=== PATIENT | female | born 1990 | race Caucasian/White ===

== ENCOUNTER 2017-03-01 01:00 | Emergency (ER) | payer SELFPAY ==
[~2017-03-01] VITALS: Ht 154.9 cm; Wt 82.0 kg
[2017-03-01 01:34] LABS: HEMATOCRIT 37.6 % (36.0-46.0); MCH 29.2 PG (29.0-34.0); MCHC 33.5 G/DL (30.0-36.0); MCV 87.2 FL (83-99); MEAN PLAT.VOLUME 9.6 uM^3 (9.5-12.4); PLATELET COUNT 289 K/uL (156-360); RBC DIS.WIDTH-CV 13.2 % (11.8-14.6); RBC DIS.WIDTH-SD 41.1 % (39-53); RED BLOOD COUNT 4.31 M/uL (3.80-5.20); WHITE BLOOD COUNT 9.2 K/uL (4.1-10.2)
[2017-03-01 01:47] LABS: CHLORIDE 106 mEq/L (99-109); POTASSIUM 3.8 mEq/L (3.7-5.4); SODIUM 139 mEq/L (136-147)
[2017-03-01 01:49] LABS: GLUCOSE 116 mg/dL (70-99)
[2017-03-01 01:50] LABS: ANION GAP 9 MEQ/L (2-14)
[2017-03-01 01:51] LABS: TOTAL BILIRUBIN 0.5 mg/dL (0.0-1.0)
[2017-03-01 01:52] LABS: ALKALINE PHOSPHATASE 72 IU/L (3-129)
[2017-03-01 01:54] LABS: UREA NITROGEN (BUN) 18 mg/dL (9-23)
[2017-03-01 02:02] LABS: GFR ESTIMATE (CALCULATED) > 59 mL/min/; QUANTITATIVE HCG < 4.0 MIU/ML
[2017-03-01 03:07] LABS: ADD MIUA? YES; BILIRUBIN NEGATIVE; BLOOD SMALL; COLOR YELLOW ((YELLOW)); GLUCOSE (STRIP) NEGATIVE; KETONES NEGATIVE; LEUKOCYTES NEGATIVE; NITRITE NEGATIVE; PROTEIN (STRIP) NEGATIVE; SPECIFIC GRAVITY 1.014 (1.000-1.030); UROBILINOGEN 0.2 MG/DL (0.2-1.0)
[2017-03-01 03:09] LABS: BACTERIA NONE SEEN /HPF; EPITHELIAL CELLS RARE /HPF; MUCUS TRACE /LPF; RED BLOOD CELLS 0-5 /HPF (0-5); UCUL ADDED? NO; WHITE BLOOD CELLS 0-5 /HPF (0-5)
[2017-03-01] MEDS ORDERED: MOTRIN800 MG PO (03:17)
[2017-03-01 03:38] VITALS: BP 117/88
[2017-03-02 12:55] LABS: CHLAMYDIA TRACHOMATIS NEGATIVE; NEISSERIA GONORRHOEAE NEGATIVE
== END 2017-03-01 03:40 | disposition home or self-care (01) ==
LOC: EME 01:00 → EXP 01:00
PROVIDERS: Physician Assistant
DX: N92.1 Excessive and frequent menstruation with irregular cycle (principal); Z98.890 Other specified postprocedural states
CPT/HCPCS: 80053; 81003; 84702; 85027; 87210; 87491; 87591

== ENCOUNTER 2017-03-07 11:42 | Day surgery (SDC) | payer OTHER ==
[~2017-03-07] VITALS: Ht 154.9 cm; Wt 80.5 kg
[~2017-03-07 11:42] MED LIST: MOTRIN800 MG PO; ULTRAM50 MG PO; ZYRTEC10 M3 PO
[2017-03-07 12:15] VITALS: BP 117/55
[2017-03-07 14:50] VITALS: BP 104/67
[2017-03-07 15:25] VITALS: BP 112/78
== END 2017-03-07 15:30 | disposition home or self-care (01) ==
LOC: SDC 11:42
PROC: 0UDB7ZX Extraction of Endometrium, Via Natural or Artificial Opening, Diagnostic (ICD-10-PCS; principal; 2017-03-07)
DX: N92.1 Excessive and frequent menstruation with irregular cycle (principal); N87.9 Dysplasia of cervix uteri, unspecified; N94.6 Dysmenorrhea, unspecified; N97.0 Female infertility associated with anovulation; K21.9 Gastro-esophageal reflux disease without esophagitis; K50.90 Crohn's disease, unspecified, without complications; Q61.5 Medullary cystic kidney; Z72.0 Tobacco use; Z83.3 Family history of diabetes mellitus
CPT/HCPCS: 88305; J0131; J1100; J2250; J2405; J2765; J3010

== ENCOUNTER 2017-06-04 05:12 | Day surgery (SDC) | payer OTHER ==
[~2017-06-04] VITALS: Ht 154.9 cm; Wt 78.1 kg
[~2017-06-04 05:12] MED LIST changes: +LEVOXYL25 MCG PO
[2017-06-04 05:52] VITALS: BP 121/80
[2017-06-04 13:58] VITALS: BP 117/79
[2017-06-04 19:15] VITALS: BP 118/61
[2017-06-05 00:20] VITALS: BP 109/58
[2017-06-05 06:03] LABS: EOSINOPHIL (%) 0.8 % (0-5); EOSINOPHIL COUNT 0.1 K/uL (0-0.3); HEMATOCRIT 29.8 % (36.0-46.0); IMMATURE GRANULOCYTE (%) 0.4 % (0.0-0.7); INSTRUMENT ABS NEUTROPHIL CT 8.6 K/uL; LYMPHOCYTE COUNT 1.7 K/uL (1.0-2.8); MCH 27.6 PG (29.0-34.0); MCHC 33.2 G/DL (30.0-36.0); MEAN PLAT.VOLUME 10.4 uM^3 (9.5-12.4); MONOCYTE (%) 4.8 % (3-12); MONOCYTE COUNT 0.5 K/uL (0-0.8); NEUTROPHIL (%) 78.5 % (45-76); NEUTROPHIL COUNT 8.6 K/uL (1.8-6.4); PLATELET COUNT 273 K/uL (156-360); RBC DIS.WIDTH-CV 12.4 % (11.8-14.6); RBC DIS.WIDTH-SD 37.5 % (39-53); RED BLOOD COUNT 3.59 M/uL (3.80-5.20); WHITE BLOOD COUNT 10.9 K/uL (4.1-10.2)
[2017-06-05] MEDS ORDERED: DILAUDID4 MG PO (08:16)
[2017-06-05 08:32] VITALS: BP 118/63
[2017-06-05 11:36] VITALS: BP 120/60
== END 2017-06-05 12:27 | disposition home or self-care (01) ==
LOC: SDC → 2SOUTH 10:45 → ENRESERV 10:47 → 2EAST 13:42 → SDC 13:44 → 2EAST 06-05 12:27
PROVIDERS: Obstetrics & Gynecology
DX: N92.1 Excessive and frequent menstruation with irregular cycle (principal); N94.6 Dysmenorrhea, unspecified; N97.0 Female infertility associated with anovulation; E03.9 Hypothyroidism, unspecified
CPT/HCPCS: 85025; 88302; 88307; G0378; J0131; J0330; J0690; J1100; J1170; J1885; J2250; J2405; J2710; J2765; J3010; J7120; Q0177